=== PATIENT | female | born 1955 | race Caucasian/White ===

== ENCOUNTER 2017-10-03 20:20 | Emergency (ER) | payer OTHER ==
[~2017-10-03] VITALS: Ht 152.4 cm; Wt 75.7 kg
[2017-10-03 20:36] VITALS: Ht 152.4 cm; Wt 75.7 kg
[2017-10-03 21:48] VITALS: BP 165/108
== END 2017-10-03 21:48 | disposition home or self-care (01) ==
LOC: ED 20:20
DX: S62.617A Displaced fracture of proximal phalanx of left little finger, initial encounter for closed fracture (principal); W22.8XXA Striking against or struck by other objects, initial encounter; Y93.89 Activity, other specified; Y92.89 Other specified places as the place of occurrence of the external cause; Y99.8 Other external cause status
CPT/HCPCS: J1885